=== PATIENT | female | born 2005 | race Two or more races ===

== ENCOUNTER 2024-10-18 22:25 | Emergency (ER) | payer SELFPAY ==
[~2024-10-18] VITALS: Ht 162.6 cm; Wt 52.0 kg
[2024-10-18 22:36] VITALS: BP 128/79; PULSE 104; RESP 15; TEMP 36.2; O2SAT 97
[2024-10-18 23:06] VITALS: TEMP 97.2
[2024-10-18] MEDS: ACETAMINOPHEN 325MG TABLET PO ONE (23:06)
== END 2024-10-19 01:15 | disposition home or self-care (01) ==
LOC: ER 22:25
DX: R51.9 Headache, unspecified (principal); M54.9 Dorsalgia, unspecified
CPT/HCPCS: 72128; 99284